=== PATIENT | female | born 1965 | race Caucasian/White ===

== ENCOUNTER 2023-06-18 08:55 | Observation (INO) | payer BC ==
[2023-06-18 09:22] LABS: #Basophils 0.1 thou/uL (0.0-0.2); #Eosinphils 0.1 thou/uL (0.0-0.7); #Monocytes 0.6 thou/uL (0.11-0.59); #Neutrophils 4.7 thou/uL (1.40-6.50); %Basophils 0.8 % (0.0-1.0); %Eosinophils 1.4 % (0.0-10.0); %Lymphocytes 15.4 % (21.0-51.0); %Neutrophils 73.1 % (42.0-75.0); Hematocrit 37.5 % (36.0-47.0); Hemoglobin 11.9 g/dL (12.0-16.0); Mean Corpuscular HGB CONC 31.7 g/dL (32.0-36.0); Mean Corpuscular Hemoglobin 28.1 pg (27.0-31.0); Mean Corpuscular Volume 88.7 fl (78.0-98.0); Mean Platelet Volume 9.8 fL (7.4-10.4); Platelet Count 254 10x3/uL (130-400); Red Blood Cell (RBC) Count 4.23 mill/uL (4.20-5.40); White Blood Cell (WBC) Count 6.4 10x3/uL (4.8-10.8)
[2023-06-18] MEDS ORDERED: Iopamidol-370 76% 500 ML MDV (1 ML CHARGE) ONE (09:46)
[2023-06-18 09:51] LABS: ALT (SGPT) 9 U/L (8-55); AST (SGOT) 12 U/L (5-34); Albumin 4.2 g/dL (3.5-5.0); Alkaline Phosphatase 92 U/L (40-110); Anion Gap 11 mmol/L (10-20); BUN (Urea Nitrogen) 11 mg/dL (9.8-20.1); Bilirubin, Total 0.4 mg/dL (0.2-1.2); Calc. Creatinine Clearance 0 mL/min (70-130); Carbon Dioxide 28 mmol/L (22-29); Chloride 107 mmol/L (98-107); Estimated GFR 59; Globulin 2.8 g/dL (2.4-3.5); Glucose 134 mg/dL (70-105); Potassium 3.7 mmol/L (3.5-5.1); Sodium 142 mmol/L (136-145)
[2023-06-18 09:54] LABS: Troponin I Less than 0.010 ng/mL (< 0.028)
[2023-06-18 10:03] LABS: Bacteria/HPF None Seen HPF (None Seen); Bilirubin Negative (Negative); Blood, Urine 1+ (Negative); CAUTI Indications for Culture Alt mental st,lethar; Clarity Clear (Clear); Glucose, Urine (Dipstick) Normal (Negative); Ketone, Urine Negative (Negative); Leukocyte Negative Leu/uL (Negative); Nitrite Negative (Negative); Protein, Urine (Dipstick) 10 mg/dL (Neg-Trace); RBC/HPF 0-3 HPF (0-3); Specific Gravity, Urine 1.024 (1.002-1.036); Urobilinogen Normal mg/dL (Less than 2); WBC/HPF 0-3 HPF (0-3); pH, Urine 5.5 (5.0-9.0)
[2023-06-18 10:07] LABS: Urine Culture Reflex No No
[2023-06-18] MEDS ORDERED: Loperamide HCl 2 MG CAP ONE (10:31)
[2023-06-18] MEDS ORDERED: Meclizine HCl 25 MG TAB ONE (10:31)
[2023-06-18 14:52] VITALS: BMI 33.9
[2023-06-18] MEDS ORDERED: Acetaminophen 325 MG TAB PO PRN (20:32)
[2023-06-18] MEDS ORDERED: Ondansetron PF 4 MG/2 ML Vial IVP PRN (20:32)
[2023-06-18] MEDS ORDERED: Senokot S 8.6-50 MG TAB PO PRN (20:32)
[2023-06-18] MEDS ORDERED: Calcium Carbonate 500 MG ChewTAB PO PRN (20:32)
[2023-06-18] MEDS ORDERED: Baclofen 10 MG TAB PO PRN (20:36)
[2023-06-18] MEDS: lamoTRIgine 100 MG TAB PO SCH (21:23)
[2023-06-18] MEDS: Meclizine HCl 25 MG TAB PO SCH (21:23)
[2023-06-18] MEDS: traZODone HCl 50 MG TAB PO SCH (21:24)
[2023-06-18] MEDS: Atorvastatin Calcium 40 MG TAB PO SCH (21:24)
[2023-06-18] MEDS: Apixaban 5 MG TAB PO SCH (21:24)
[2023-06-18] MEDS: Lithium Carbonate 150 MG CAP PO SCH (21:26)
[2023-06-18] MEDS ORDERED: Loperamide HCl 2 MG CAP PO SCH (21:45)
[2023-06-19] MEDS: Meclizine HCl 25 MG TAB PO SCH ×3 (05:58→21:01)
[2023-06-19] MEDS: Levothyroxine Sodium 50 MCG TAB PO SCH (05:58)
[2023-06-19 07:58] LABS: #Eosinphils 0.1 thou/uL (0.0-0.7); #Monocytes 0.5 thou/uL (0.11-0.59); #Neutrophils 3.4 thou/uL (1.40-6.50); %Basophils 0.7 % (0.0-1.0); %Eosinophils 1.9 % (0.0-10.0); %Monocytes 8.6 % (0.0-10.0); %Neutrophils 64.4 % (42.0-75.0); Hematocrit 34.6 % (36.0-47.0); Hemoglobin 10.8 g/dL (12.0-16.0); Mean Corpuscular HGB CONC 31.2 g/dL (32.0-36.0); Mean Corpuscular Hemoglobin 28.3 pg (27.0-31.0); Mean Corpuscular Volume 90.8 fl (78.0-98.0); Mean Platelet Volume 10.1 fL (7.4-10.4); Platelet Count 249 10x3/uL (130-400); RBC Distribution Width 13.2 % (11.5-14.5); Red Blood Cell (RBC) Count 3.81 mill/uL (4.20-5.40); White Blood Cell (WBC) Count 5.3 10x3/uL (4.8-10.8)
[2023-06-19 08:29] LABS: ALT (SGPT) 9 U/L (8-55); AST (SGOT) 12 U/L (5-34); Albumin 3.9 g/dL (3.5-5.0); Alkaline Phosphatase 84 U/L (40-110); Anion Gap 11 mmol/L (10-20); BUN (Urea Nitrogen) 14 mg/dL (9.8-20.1); Bilirubin, Total 0.4 mg/dL (0.2-1.2); Calc. Creatinine Clearance 71 mL/min (70-130); Carbon Dioxide 27 mmol/L (22-29); Cardiac Risk 4.5 (Less than 4.5); Chloride 102 mmol/L (98-107); Cholesterol 227 mg/dl (< 200 Desired); Estimated GFR 47; Globulin 2.4 g/dL (2.4-3.5); Glucose 86 mg/dL (70-105); HDL Cholesterol 50 mg/dL (>60 Neg Risk); LDL Cholesterol, Calculated 152 mg/dL; Potassium 4.1 mmol/L (3.5-5.1); Protein, Total 6.3 g/dL (6.0-8.3); Sodium 136 mmol/L (136-145); Triglycerides 126 mg/dL (Less than 150)
[2023-06-19] MEDS: Aspirin 81 mg Enteric Coated Tablet PO SCH (09:51)
[2023-06-19] MEDS: Oxybutynin 5 MG TAB PO SCH (09:51)
[2023-06-19] MEDS: Apixaban 5 MG TAB PO SCH ×2 (09:51→21:01)
[2023-06-19] MEDS: Liothyronine Sodium 5 MCG TAB PO SCH (09:51)
[2023-06-19] MEDS: Escitalopram Oxalate 20 mg Tablet PO SCH (09:51)
[2023-06-19] MEDS ORDERED: Loperamide HCl 2 MG CAP PO PRN (11:36)
[2023-06-19] MEDS ORDERED: Loperamide HCl 2 MG CAP PO SCH (11:45)
[2023-06-19] MEDS: Lithium Carbonate 150 MG CAP PO SCH (21:01)
[2023-06-19] MEDS: lamoTRIgine 100 MG TAB PO SCH (21:01)
[2023-06-19] MEDS: Atorvastatin Calcium 40 MG TAB PO SCH (21:01)
[2023-06-19] MEDS: traZODone HCl 50 MG TAB PO SCH (21:01)
[2023-06-20] MEDS: Levothyroxine Sodium 50 MCG TAB PO SCH (05:24)
[2023-06-20] MEDS: Meclizine HCl 25 MG TAB PO SCH (05:24)
[2023-06-20 08:10] VITALS: TEMP 98.2
[2023-06-20] MEDS: Liothyronine Sodium 5 MCG TAB PO SCH (09:59)
[2023-06-20] MEDS: Aspirin 81 mg Enteric Coated Tablet PO SCH (10:00)
[2023-06-20] MEDS: Apixaban 5 MG TAB PO SCH (10:00)
[2023-06-20] MEDS: Oxybutynin 5 MG TAB PO SCH (10:00)
[2023-06-20] MEDS: Escitalopram Oxalate 20 mg Tablet PO SCH (10:00)
[2023-06-20 11:56] VITALS: BP 120/57
== END 2023-06-20 12:40 | disposition home or self-care (01) ==
LOC: ERS 08:55 → 2SE 12:55 → INTOOBSV 12:55
PROVIDERS: ADMIT Internal Medicine; ATTEND Internal Medicine
DX: R42 Dizziness and giddiness (principal); E66.9 Obesity, unspecified; F39 Unspecified mood [affective] disorder; E03.9 Hypothyroidism, unspecified; R29.90 Unspecified symptoms and signs involving the nervous system; Z68.39 Body mass index [BMI] 39.0-39.9, adult; Z91.048 Other nonmedicinal substance allergy status; Z88.8 Allergy status to other drugs, medicaments and biological substances; Z98.2 Presence of cerebrospinal fluid drainage device; Z79.890 Hormone replacement therapy; Z79.01 Long term (current) use of anticoagulants; Z79.899 Other long term (current) drug therapy
CPT/HCPCS: 36415; 70496; 70498; 70551; 80053; 80061; 80178; 81001; 83036; 84443; 84484; 85025; 93005; 93306; G0378; Q9967

== ENCOUNTER 2023-12-12 14:18 | Emergency (ER) | payer BC ==
[2023-12-12 14:55] LABS: #Basophils 0.1 thou/uL (0.0-0.2); #Eosinphils 0.1 thou/uL (0.0-0.7); #Monocytes 0.5 thou/uL (0.11-0.59); #Neutrophils 3.4 thou/uL (1.40-6.50); %Basophils 0.9 % (0.0-1.0); %Eosinophils 1.4 % (0.0-10.0); %Lymphocytes 30.7 % (21.0-51.0); %Monocytes 9.2 % (0.0-10.0); %Neutrophils 57.5 % (42.0-75.0); Hematocrit 37.8 % (36.0-47.0); Hemoglobin 12.4 g/dL (12.0-16.0); Mean Corpuscular HGB CONC 32.8 g/dL (32.0-36.0); Mean Corpuscular Hemoglobin 29.2 pg (27.0-31.0); Mean Corpuscular Volume 89.2 fl (78.0-98.0); Mean Platelet Volume 10.1 fL (7.4-10.4); Platelet Count 263 10x3/uL (130-400); RBC Distribution Width 12.6 % (11.5-14.5); Red Blood Cell (RBC) Count 4.24 mill/uL (4.20-5.40); White Blood Cell (WBC) Count 5.9 10x3/uL (4.8-10.8)
[2023-12-12 15:31] LABS: ALT (SGPT) 9 U/L (8-55); AST (SGOT) 13 U/L (5-34); Albumin 4.4 g/dL (3.5-5.0); Alkaline Phosphatase 94 U/L (40-110); Anion Gap 14 mmol/L (10-20); BUN (Urea Nitrogen) 17 mg/dL (9.8-20.1); Bilirubin, Total 0.5 mg/dL (0.2-1.2); Calc. Creatinine Clearance 0 mL/min (70-130); Calcium 9.2 mg/dL (7.8-10.44); Carbon Dioxide 24 mmol/L (22-29); Chloride 103 mmol/L (98-107); Estimated GFR 67; Globulin 2.4 g/dL (2.4-3.5); Glucose 81 mg/dL (70-105); Potassium 4.1 mmol/L (3.5-5.1); Protein, Total 6.8 g/dL (6.0-8.3); Sodium 137 mmol/L (136-145)
[2023-12-12 15:45] LABS: Troponin I Less than 0.010 ng/mL (< 0.028)
[2023-12-12 17:17] LABS: Bacteria/HPF None Seen HPF (None Seen); Bilirubin Negative (Negative); Blood, Urine Trace (Negative); CAUTI Indications for Culture Dysuria,urgency,freq; Clarity Clear (Clear); Glucose, Urine (Dipstick) Normal (Negative); Ketone, Urine Negative (Negative); Leukocyte Negative Leu/uL (Negative); Nitrite Negative (Negative); Protein, Urine (Dipstick) Negative (Neg-Trace); RBC/HPF 0-3 HPF (0-3); Specific Gravity, Urine 1.021 (1.002-1.036); Urobilinogen Normal mg/dL (Less than 2); WBC/HPF 0-3 HPF (0-3); pH, Urine 5.5 (5.0-9.0)
[2023-12-12 17:29] LABS: Urine Culture Reflex No No
[2023-12-12 17:52] LABS: INR-International Normal Ratio 1.1
[2023-12-12 17:58] LABS: Lipase 20 U/L (8-78); Magnesium 1.6 mg/dL (1.6-2.6)
[2023-12-12] MEDS ORDERED: Meclizine HCl 25 MG TAB ONE (18:16)
[2023-12-12] MEDS ORDERED: Metoclopramide HCl 10 MG (2 mL) VIAL ONE (18:16)
[2023-12-12] MEDS ORDERED: Acetaminophen 500 MG TAB ONE (18:16)
== END 2023-12-12 20:17 | disposition home or self-care (01) ==
LOC: ERS 14:18
DX: R51.9 Headache, unspecified (principal); R06.00 Dyspnea, unspecified; R42 Dizziness and giddiness; I10 Essential (primary) hypertension
CPT/HCPCS: 36415; 70450; 71275; 80053; 81001; 83690; 83735; 83880; 84443; 84484; 85025; 85610; 85730; 93005; 96365; J2765